=== PATIENT | female | born 1965 | race Caucasian/White ===

== ENCOUNTER 2016-04-20 07:11 | Emergency (ER) | payer MEDICAID, OTHER ==
[~2016-04-20] VITALS: Wt 138.0 kg
[~2016-04-20 07:11] MED LIST: BACTDS PO; CEPH-443 PO; HYDR-3498 PO
[2016-04-20] MEDS ORDERED: ACETAMINOPHEN 500 MG TAB PO STA (07:45)
[2016-04-20] MEDS ORDERED: BACTDS PO (07:56)
[2016-04-20] MEDS ORDERED: CEPH-443 PO (07:56)
[2016-04-20] MEDS ORDERED: IBUP-1542 PO (07:56)
--- NOTE | 2016-04-20 08:10 | ERD ---
ER Documentation Chief Complaint Date/Time DATE: 04/20/16 TIME: 07:59 Chief Complaint r side neck abscess for 1 week with drainage and some blood. no fevers HPI The patient is a 50-year-old female with past medical history of diabetes type 2 , hypertension, hypercholesterolemia, and osteoarthritis who presents with an abscess on the right side of her neck at the neck fold for the last 5 days. She states that there has been some purulent drainage at home beginning yesterday. No home treatments. She has had similar abscesses in the past. She denies fever , chills, nausea, vomiting, diarrhea, or any flulike symptoms. She feels well in general per her baseline. ROS All systems reviewed and are negative except as per history of present illness. Medications Home Meds Active Scripts Cephalexin* (Keflex*) 500 Mg Capsule, 500 MG PO QID for 7 Days, CAP Prov:CLAY FUNES, UNIT SECRETARY 04/20/16 Ibuprofen* (Motrin*) 600 Mg Tab, 600 MG PO Q8, #30 TAB Prov:CLAY FUNES, UNIT SECRETARY 04/20/16 Sulfamethoxazole-Trimethoprim* (Bactrim* DS) 800-160 Mg Tab, 1 TAB PO BID for 7 Days, TAB Prov:CLAY FUNES, UNIT SECRETARY 04/20/16 Hydrocodone Bit-Acetaminophen* ([place]*) 5-325 Mg Tab, 1 TAB PO Q6 Y for PAIN, # 14 TAB Prov:MONSERRAT WILDE PA-C 11/10/14 Sulfamethoxazole-Trimethoprim* (Bactrim* DS) 800-160 Mg Tab, 1 TAB PO BID for 10 Days, TAB Prov:MONSERRAT WILDE PA-C 11/10/14 Cephalexin* (Keflex*) 500 Mg Capsule, 500 MG PO QID for 7 Days, CAP Prov:MONSERRAT WILDE PA-C 11/10/14 Allergies Allergies: Coded Allergies: No Known Allergy (Unverified , 11/10/14) PMhx/Soc History of Surgery: Yes (, cholecystectomy) Anesthesia Reaction: No Hx Neurological Disorder: No Hx Respiratory Disorders: No Hx Cardiac Disorders: Yes (HTN) Hx Psychiatric Problems: No Hx Miscellaneous Medical Probl: Yes (DM, high cholesterol) Hx Alcohol Use: No Hx Substance Use: No Hx Tobacco Use: No Smoking Status: Never smoker Physical Exam Vitals Vital Signs Date Time Temp Pulse Resp B/P Pulse Ox O2 Delivery O2 Flow Rate FiO2 04/20/16 07:14 97.8 79 20 185/91 96 Physical Exam INITIAL VITAL SIGNS: Reviewed by me, afebrile, no tachycardia GENERAL: Alert. Well developed and well nourished. No respiratory distress. Nontoxic appearing. No acute distress. HEAD: Head is normocephalic. Atraumatic. EYES: EOMI. No scleral icterus. No conjunctival injection. ENT: External ears, nose, and mouth normal. Nasal passages patent. Moist mucous membranes. NECK: Supple. Full range of motion. Trachea midline. + Right side of the neck with a non-fluctuant abscess approximately 1 cm x 0.5 cm. No active drainage. No surrounding cellulitis. Mild erythema. Slightly warm to touch. No tracking. Area is tender to palpation. RESPIRATORY: No tachypnea. Clear to auscultation bilaterally. No wheezing, rales , or rhonchi. CV: Regular rate and rhythm. No murmurs, rubs, or gallops ABDOMEN: Soft, rounded/obese, non-tender. Bowel sounds normal in all quadrants. BACK: No CVA tenderness. Full ROM. EXTREMITIES: No obvious deformity. No clubbing or cyanosis. No edema. SKIN: Warm and dry. No diaphoresis. No obvious rashes or lesions. NEUROLOGIC: Alert and oriented x 3. Appropriate. Face is symmetric. Speech is normal. Moves all extremities equally. Results 24 hrs Current Medications Medications (Trade) Dose Ordered Sig/Chandler Route PRN Reason Start Time Stop Time Status Last Admin Dose Admin Acetaminophen (Tylenol Tab) 1,000 mg ONCE STAT PO 04/20/16 07:45 04/20/16 07:46 DC 04/20/16 07:51 Procedures/MDM Nursing Notes Reviewed Previous Medical Records requested via [employer]. EMERGENCY DEPARTMENT COURSE / MEDICAL DECISION MAKING: The patient comes to the ED secondary to abscess to the right side of her neck for 5 days. Differential diagnosis upon initial evaluation includes but is not limited to: cellulitis, sepsis, cutaneous abscess, necrotizing fasciitis, and others. The patient was treated with Tylenol 1 g by mouth for pain. The case was discussed with supervising physician Dr. Pantoja who agrees that the patient is an appropriate candidate for outpatient management and follow-up with antibiotics and warm compress. Per the patient, the abscess has already began to drain and has been oozing some purulent material since yesterday. The patient will keep the area clean and dry. She will take her antibiotics as prescribed. She will use warm compress up to 5 times per day. She will return for any new or worsening symptoms. She will monitor her temperature at home and return immediately should she develop a fever or any flulike symptoms. Final impression: Cutaneous abscess without cellulitis Based on patient's history of present illness and physical examination the decision was made to discharge. There is no evidence of life threatening injuries or illnesses at this time. On re-examination, patient resting in no distress, stable vital signs, reports feeling safe for discharge with outpatient follow up here in 48 hours for a recheck. Patient given return precautions. She will return immediately for any new or worsening symptoms. All of her questions and concerns were addressed prior to discharge. She agrees with the plan of care. Patient's blood pressure was elevated but appears stable without evidence of hypertensive emergency, end organ damage, chest pain or shortness of breath. The patient states that she has not yet taken her medication for hypertension this morning. She states that she is compliant with her medication and usually takes it a little later in the day. She will take it when she gets home. Prescriptions Keflex Bactrim Ibuprofen Departure Diagnosis: Primary Impression: Abscess Condition: Stable Patient Instructions: Abscess, Antiobiotic Treatment Only Referrals: SAGAR GALVEZ (PCP) Additional Instructions: Llame al doctor CELSO y dia benjamin MIKEL PARA DENTRO DE 2 HOPE para revisar. Dgale a la secretaria que nosotros le instruimos hacer esta mikel. O, regresa aqui en 2 hope para revisar. Avise o llame si branham condicin se empeora antes de la mikel. Regresa aqui si peor o no mejor. CLAY FUNES NP Apr 20, 2016 08:10
== END 2016-04-20 08:20 | disposition home or self-care (01) ==
LOC: FTE 07:11
DX: L02.11 Cutaneous abscess of neck (principal); E11.9 Type 2 diabetes mellitus without complications; I10 Essential (primary) hypertension
CPT/HCPCS: Z7502; Z7610; 99284